=== PATIENT | male | born 1965 | race Caucasian/White ===

== ENCOUNTER 2025-06-20 08:04 | Outpatient (AMB) | payer OTHER, SELFPAY | END 2025-06-20 08:34 | disposition home or self-care (01) | LOC: HO.HMGAL 08:04 | PROVIDERS: Visit Provider Registered Nurse Emergency | DX: J30.89 Other allergic rhinitis (principal) | CPT/HCPCS: 95117; 95165 ==

== ENCOUNTER 2025-06-29 07:56 | Outpatient (AMB) | payer OTHER, SELFPAY | END 2025-06-29 08:17 | disposition home or self-care (01) | LOC: HO.HMGAL 07:56 | PROVIDERS: Visit Provider Registered Nurse Emergency | DX: J30.89 Other allergic rhinitis (principal) | CPT/HCPCS: 95117; 95165 ==

== ENCOUNTER 2025-07-04 08:00 | Outpatient (AMB) | payer OTHER, SELFPAY | END 2025-07-04 08:08 | disposition home or self-care (01) | LOC: HO.HMGAL 08:00 | PROVIDERS: Visit Provider Registered Nurse Emergency | DX: J30.89 Other allergic rhinitis (principal) | CPT/HCPCS: 95117; 95165 ==

== ENCOUNTER 2025-07-11 08:11 | Outpatient (AMB) | payer OTHER, SELFPAY | END 2025-07-11 08:24 | disposition home or self-care (01) | PROVIDERS: Visit Provider Registered Nurse Emergency | DX: J30.89 Other allergic rhinitis (principal) | CPT/HCPCS: 95117; 95165 ==

== ENCOUNTER 2025-07-18 08:10 | Outpatient (AMB) | payer OTHER, SELFPAY | END 2025-07-18 08:13 | disposition home or self-care (01) | LOC: HO.HMGAL 08:10 | PROVIDERS: PCP Nurse Practitioner Family; Visit Provider Registered Nurse Emergency | DX: J30.89 Other allergic rhinitis (principal) | CPT/HCPCS: 95117; 95165 ==

== ENCOUNTER 2025-08-01 08:05 | Outpatient (AMB) | payer OTHER, SELFPAY | END 2025-08-01 08:06 | disposition home or self-care (01) | LOC: HO.HMGAL 08:05 | PROVIDERS: PCP Nurse Practitioner Family; Visit Provider Registered Nurse Emergency | DX: J30.89 Other allergic rhinitis (principal) | CPT/HCPCS: 95117; 95165 ==

== ENCOUNTER 2025-08-10 08:33 | Outpatient (AMB) | payer OTHER, SELFPAY | END 2025-08-10 08:34 | disposition home or self-care (01) | LOC: HO.HMGAL 08:33 | PROVIDERS: PCP Nurse Practitioner Family; Visit Provider Registered Nurse Emergency | DX: J30.89 Other allergic rhinitis (principal) | CPT/HCPCS: 95117; 95165 ==

== ENCOUNTER 2025-08-15 08:58 | Outpatient (AMB) | payer OTHER, SELFPAY | END 2025-08-15 09:07 | disposition home or self-care (01) | LOC: HO.HMGAL 08:58 | PROVIDERS: PCP Nurse Practitioner Family; Visit Provider Registered Nurse Emergency | DX: J30.89 Other allergic rhinitis (principal) | CPT/HCPCS: 95117; 95165 ==

== ENCOUNTER 2025-08-22 08:13 | Outpatient (AMB) | payer OTHER, SELFPAY | END 2025-08-22 08:14 | disposition home or self-care (01) | LOC: HO.HMGAL 08:13 | PROVIDERS: PCP Nurse Practitioner Family; Visit Provider Registered Nurse Emergency | DX: J30.89 Other allergic rhinitis (principal) | CPT/HCPCS: 95117; 95165 ==

== ENCOUNTER 2025-08-31 08:09 | Outpatient (AMB) | payer OTHER, SELFPAY | END 2025-08-31 08:09 | disposition home or self-care (01) | LOC: HO.HMGAL 08:09 | PROVIDERS: PCP Nurse Practitioner Family; Visit Provider Registered Nurse Emergency | DX: J30.89 Other allergic rhinitis (principal) | CPT/HCPCS: 95117; 95165 ==

== ENCOUNTER 2025-09-05 08:11 | Outpatient (AMB) | payer OTHER, SELFPAY | END 2025-09-05 08:13 | disposition home or self-care (01) | LOC: HO.HMGAL 08:11 | PROVIDERS: PCP Nurse Practitioner Family; Visit Provider Registered Nurse Emergency | DX: J30.89 Other allergic rhinitis (principal) | CPT/HCPCS: 95117; 95165 ==

== ENCOUNTER 2025-09-12 08:14 | Outpatient (AMB) | payer OTHER, SELFPAY | END 2025-09-12 08:20 | disposition home or self-care (01) | LOC: HO.HMGAL 08:14 | PROVIDERS: PCP Nurse Practitioner Family; Visit Provider Registered Nurse Emergency | DX: J30.89 Other allergic rhinitis (principal) | CPT/HCPCS: 95117; 95165 ==

== ENCOUNTER 2025-09-19 08:11 | Outpatient (AMB) | payer OTHER, SELFPAY | END 2025-09-19 08:12 | disposition home or self-care (01) | LOC: HO.HMGAL 08:11 | PROVIDERS: PCP Nurse Practitioner Family; Visit Provider Registered Nurse Emergency | DX: J30.89 Other allergic rhinitis (principal) | CPT/HCPCS: 95117; 95165 ==

== ENCOUNTER 2025-09-26 08:21 | Outpatient (AMB) | payer OTHER, SELFPAY | END 2025-09-26 08:21 | disposition home or self-care (01) | LOC: HO.HMGAL 08:21 | PROVIDERS: PCP Nurse Practitioner Family; Visit Provider Registered Nurse Emergency | DX: J30.89 Other allergic rhinitis (principal) | CPT/HCPCS: 95117; 95165 ==

== ENCOUNTER 2025-10-03 08:18 | Outpatient (AMB) | payer OTHER, SELFPAY | END 2025-10-03 08:19 | disposition home or self-care (01) | LOC: HO.HMGAL 08:18 | PROVIDERS: PCP Nurse Practitioner Family; Visit Provider Registered Nurse Emergency | DX: J30.89 Other allergic rhinitis (principal) | CPT/HCPCS: 95117; 95165 ==

== ENCOUNTER 2025-10-10 13:57 | Outpatient (AMB) | payer OTHER, SELFPAY | END 2025-10-10 13:59 | disposition home or self-care (01) | LOC: HO.HMGAL 13:57 | PROVIDERS: PCP Nurse Practitioner Family; Visit Provider Registered Nurse Emergency | DX: J30.89 Other allergic rhinitis (principal) | CPT/HCPCS: 95117; 95165 ==

== ENCOUNTER 2025-10-17 08:22 | Outpatient (AMB) | payer OTHER, SELFPAY | END 2025-10-17 08:24 | disposition home or self-care (01) | LOC: HO.HMGAL 08:22 | PROVIDERS: PCP Nurse Practitioner Family; Visit Provider Registered Nurse Emergency | DX: J30.89 Other allergic rhinitis (principal) | CPT/HCPCS: 95117; 95165 ==